=== PATIENT | female | born 1945 | race Two or more races ===

== ENCOUNTER 2018-07-05 18:15 | Inpatient (IN) | payer SELFPAY ==
[~2018-07-05] VITALS: Ht 157.5 cm; Wt 56.0 kg
[2018-07-05 18:45] LABS: BASOPHILS 0 % (0-2); EOSINOPHILS 0 % (0-7); HEMATOCRIT 32.9 % (36.0-48.0); IMMATURE GRANULOCYTES 0.1 % (0-5); LYMPHOCYTES 6.7 % (15-50); MCH 28.9 pg (26.0-34.0); MCHC 33.4 g/dL (31.0-37.0); MCV 86.4 fL (80.0-100.0); MEAN PLATELET VOLUME 11.2 fL (7.4-10.4); MONOCYTES 4.4 % (2-11); NEUTROPHILS 88.8 % (40-80); PLATELET COUNT 238 10x3/uL (130-400); RBC 3.81 10x6/uL (4.00-5.40); WBC 9.8 10x3/uL (4.8-10.8)
[2018-07-05 19:24] LABS: ALBUMIN 3.7 g/dL (3.4-5.0); ANION GAP 14.9 mmol/L (8-16); BILIRUBIN - TOTAL 0.49 mg/dL (0.2-1.3); CARBON DIOXIDE 27.8 mmol/L (21.0-32.0); CREATININE - SERUM 2.2 mg/dL (0.6-1.3); POTASSIUM - SERUM 3.7 mmol/L (3.5-5.1); PROTEIN - SERUM 8.2 g/dL (6.4-8.2)
[2018-07-05 21:30] VITALS: BP 143/78
[2018-07-05 22:01] LABS: APPEARANCE CLEAR (CLEAR); COLOR YELLOW (YELLOW); NITRITE POSITIVE (NEGATIVE); PROTEIN TRACE mg/dL (NEGATIVE)
[2018-07-05 22:02] LABS: BACTERIA MANY /hpf (NONE SEEN); BILIRUBIN NEGATIVE (NEGATIVE); EPITHELIAL CELLS 0-5 /hpf (0-5); GLUCOSE 1000 mg/dL (NEGATIVE); KETONE NEGATIVE (NEGATIVE); RED CELLS - URINE OCC /hpf (0-5); UROBILINOGEN NORMAL (NORMAL); WHITE CELLS - URINE 0-5 /hpf (0-5)
[2018-07-05 22:30] VITALS: BP 167/90
[2018-07-05 23:16] LABS: C-REACTIVE PROTEIN 4.5 mg/dL (0.0-0.9); CKMB 0.5 U/L (0.0-3.6); PRO BNP 1791 pg/mL (0-125); THYROID STIMULATING HORMONE 0.75 uIU/mL (0.36-3.74); TROPONIN-I < 0.017 ng/mL (0.000-0.060)
[2018-07-05 23:30] VITALS: BP 172/92
[2018-07-06] VITALS (14 sets, daily range): BP systolic 140–165; BP diastolic 78–106; BMI 21.0
[2018-07-06 05:08] LABS: BASOPHILS 0.1 % (0-2); EOSINOPHILS 0 % (0-7); HEMATOCRIT 31.8 % (36.0-48.0); HEMOGLOBIN 10.7 g/dL (12-16); IMMATURE GRANULOCYTES 0.2 % (0-5); LYMPHOCYTES 8.5 % (15-50); MCH 28.8 pg (26.0-34.0); MCHC 33.6 g/dL (31.0-37.0); MCV 85.5 fL (80.0-100.0); MEAN PLATELET VOLUME 11.2 fL (7.4-10.4); MONOCYTES 6.4 % (2-11); NEUTROPHILS 84.8 % (40-80); PLATELET COUNT 228 10x3/uL (130-400); RBC 3.72 10x6/uL (4.00-5.40); RDW 14.1 % (11.5-14.5); WBC 8.6 10x3/uL (4.8-10.8)
[2018-07-06 05:17] LABS: ANION GAP 11.4 mmol/L (8-16); CALCIUM 8.6 mg/dL (8.5-10.1); CARBON DIOXIDE 31.3 mmol/L (21.0-32.0); CREATININE - SERUM 2.2 mg/dL (0.6-1.3); POTASSIUM - SERUM 3.7 mmol/L (3.5-5.1)
[2018-07-07 04:00] VITALS: BP 164/85
[2018-07-07 04:15] LABS: BASOPHILS 0.2 % (0-2); EOSINOPHILS 0 % (0-7); HEMATOCRIT 29.9 % (36.0-48.0); IMMATURE GRANULOCYTES 0.5 % (0-5); LYMPHOCYTES 18.6 % (15-50); MCH 28.8 pg (26.0-34.0); MCHC 33.4 g/dL (31.0-37.0); MCV 86.2 fL (80.0-100.0); MONOCYTES 9.6 % (2-11); NEUTROPHILS 71.1 % (40-80); PLATELET COUNT 192 10x3/uL (130-400); RBC 3.47 10x6/uL (4.00-5.40); RDW 14.1 % (11.5-14.5)
[2018-07-07 04:33] LABS: WBC 6.1 10x3/uL (4.8-10.8)
[2018-07-07 04:41] LABS: ANION GAP 12.1 mmol/L (8-16); CALCIUM 8.1 mg/dL (8.5-10.1); CARBON DIOXIDE 28.1 mmol/L (21.0-32.0); CREATININE - SERUM 1.5 mg/dL (0.6-1.3); POTASSIUM - SERUM 3.2 mmol/L (3.5-5.1)
[2018-07-07 08:19] VITALS: BP 164/77
[2018-07-07 12:18] VITALS: BP 142/69
[2018-07-07 12:34] VITALS: Ht 157.5 cm; Wt 56.0 kg
[2018-07-07 15:22] VITALS: BP 136/79
[2018-07-07 20:00] VITALS: BP 165/90
[2018-07-08 04:00] VITALS: BP 127/92
[2018-07-08 05:16] LABS: HEMATOCRIT 31.8 % (36.0-48.0); HEMOGLOBIN 10.9 g/dL (12-16); LYMPHOCYTES 31.7 % (15-50); MCH 28.9 pg (26.0-34.0); MCHC 34.3 g/dL (31.0-37.0); MCV 84.4 fL (80.0-100.0); MEAN PLATELET VOLUME 10.9 fL (7.4-10.4); NEUTROPHILS 56.9 % (40-80); PLATELET COUNT 180 10x3/uL (130-400); RBC 3.77 10x6/uL (4.00-5.40); RDW 13.4 % (11.5-14.5); WBC 7.1 10x3/uL (4.8-10.8)
[2018-07-08 05:25] LABS: ANION GAP 12.3 mmol/L (8-16); BILIRUBIN - TOTAL 0.31 mg/dL (0.2-1.3); CALCIUM 8.7 mg/dL (8.5-10.1); CARBON DIOXIDE 26.7 mmol/L (21.0-32.0); CREATININE - SERUM 1.4 mg/dL (0.6-1.3); PROTEIN - SERUM 6.9 g/dL (6.4-8.2)
[2018-07-08 09:30] VITALS: BP 181/87
[2018-07-08 12:56] VITALS: BP 188/96
[2018-07-08 16:35] VITALS: BP 150/68
[2018-07-08 20:39] VITALS: BP 192/104
[2018-07-09 04:00] VITALS: BP 185/112
[2018-07-09 06:26] LABS: BASOPHILS 0.4 % (0-2); EOSINOPHILS 1.9 % (0-7); HEMATOCRIT 29.3 % (36.0-48.0); HEMOGLOBIN 9.7 g/dL (12-16); IMMATURE GRANULOCYTES 0.9 % (0-5); LYMPHOCYTES 34.7 % (15-50); MCH 28.6 pg (26.0-34.0); MCHC 33.1 g/dL (31.0-37.0); MCV 86.4 fL (80.0-100.0); MONOCYTES 11.8 % (2-11); NEUTROPHILS 50.3 % (40-80); PLATELET COUNT 190 10x3/uL (130-400); RBC 3.39 10x6/uL (4.00-5.40); RDW 13.6 % (11.5-14.5); WBC 7.4 10x3/uL (4.8-10.8)
[2018-07-09 06:49] LABS: ALBUMIN 2.5 g/dL (3.4-5.0); ANION GAP 13.2 mmol/L (8-16); BILIRUBIN - TOTAL 0.19 mg/dL (0.2-1.3); CALCIUM 8.1 mg/dL (8.5-10.1); CARBON DIOXIDE 24.3 mmol/L (21.0-32.0); POTASSIUM - SERUM 3.5 mmol/L (3.5-5.1)
[2018-07-09 07:45] VITALS: BP 133/64
[2018-07-09 10:41] VITALS: BP 177/97
[2018-07-09 15:09] VITALS: BP 173/101
[2018-07-09 16:10] VITALS: BP 137/90; BP 152/86
[2018-07-09 20:00] VITALS: BP 143/76
[2018-07-10] VITALS: BP 188/95
[2018-07-10 04:00] VITALS: BP 119/71
[2018-07-10 05:06] LABS: BASOPHILS 0.3 % (0-2); EOSINOPHILS 1.8 % (0-7); HEMATOCRIT 29.1 % (36.0-48.0); HEMOGLOBIN 9.8 g/dL (12-16); IMMATURE GRANULOCYTES 0.9 % (0-5); LYMPHOCYTES 37.7 % (15-50); MCH 28.2 pg (26.0-34.0); MCHC 33.7 g/dL (31.0-37.0); MEAN PLATELET VOLUME 11.8 fL (7.4-10.4); MONOCYTES 10.9 % (2-11); NEUTROPHILS 48.4 % (40-80); PLATELET COUNT 168 10x3/uL (130-400); RBC 3.47 10x6/uL (4.00-5.40); RDW 13.6 % (11.5-14.5)
[2018-07-10 05:11] LABS: MCV 83.9 fL (80.0-100.0)
[2018-07-10 05:30] LABS: ALBUMIN 2.7 g/dL (3.4-5.0); ANION GAP 10.6 mmol/L (8-16); BILIRUBIN - TOTAL 0.22 mg/dL (0.2-1.3); CALCIUM 8.2 mg/dL (8.5-10.1); CARBON DIOXIDE 27.1 mmol/L (21.0-32.0); CREATININE - SERUM 1.1 mg/dL (0.6-1.3); POTASSIUM - SERUM 3.7 mmol/L (3.5-5.1); PROTEIN - SERUM 6.1 g/dL (6.4-8.2)
[2018-07-10 07:00] VITALS: BP 127/71
[2018-07-10 12:00] VITALS: BP 111/62
[2018-07-10 20:00] VITALS: BP 171/85
[2018-07-11 00:07] VITALS: BP 157/72
[2018-07-11 04:00] VITALS: BP 164/86
[2018-07-11 05:23] LABS: BASOPHILS 0.2 % (0-2); HEMATOCRIT 28.3 % (36.0-48.0); HEMOGLOBIN 9.5 g/dL (12-16); IMMATURE GRANULOCYTES 1.3 % (0-5); LYMPHOCYTES 35.1 % (15-50); MCH 28.4 pg (26.0-34.0); MCHC 33.6 g/dL (31.0-37.0); MCV 84.5 fL (80.0-100.0); MEAN PLATELET VOLUME 11.1 fL (7.4-10.4); NEUTROPHILS 52.4 % (40-80); RBC 3.35 10x6/uL (4.00-5.40); RDW 13.8 % (11.5-14.5); WBC 9.1 10x3/uL (4.8-10.8)
[2018-07-11 05:24] LABS: PLATELET COUNT 215 10x3/uL (130-400)
[2018-07-11 05:32] LABS: ALBUMIN 2.8 g/dL (3.4-5.0); ANION GAP 10.4 mmol/L (8-16); BILIRUBIN - TOTAL 0.19 mg/dL (0.2-1.3); CALCIUM 8.1 mg/dL (8.5-10.1); CARBON DIOXIDE 28.1 mmol/L (21.0-32.0); CREATININE - SERUM 1.1 mg/dL (0.6-1.3); POTASSIUM - SERUM 3.5 mmol/L (3.5-5.1); PROTEIN - SERUM 6.2 g/dL (6.4-8.2)
[2018-07-11 09:21] VITALS: BP 143/68
[2018-07-11 11:51] VITALS: BP 150/75
[2018-07-11 16:35] VITALS: BP 136/69
[2018-07-11 20:00] VITALS: BP 159/78
[2018-07-12 00:04] VITALS: BP 171/89
[2018-07-12 04:00] VITALS: BP 166/74
[2018-07-12 04:50] LABS: BASOPHILS 0.2 % (0-2); EOSINOPHILS 2.2 % (0-7); HEMATOCRIT 28.8 % (36.0-48.0); HEMOGLOBIN 9.6 g/dL (12-16); LYMPHOCYTES 38.8 % (15-50); MCH 28.3 pg (26.0-34.0); MCHC 33.3 g/dL (31.0-37.0); MEAN PLATELET VOLUME 10.9 fL (7.4-10.4); MONOCYTES 8.8 % (2-11); PLATELET COUNT 231 10x3/uL (130-400); RBC 3.39 10x6/uL (4.00-5.40); RDW 14.1 % (11.5-14.5); WBC 9.8 10x3/uL (4.8-10.8)
[2018-07-12 05:09] LABS: ANION GAP 14.1 mmol/L (8-16); BILIRUBIN - TOTAL 0.22 mg/dL (0.2-1.3); CALCIUM 8.4 mg/dL (8.5-10.1); CREATININE - SERUM 1.3 mg/dL (0.6-1.3); PROTEIN - SERUM 6.4 g/dL (6.4-8.2)
[2018-07-12 05:10] LABS: POTASSIUM - SERUM 4.1 mmol/L (3.5-5.1)
[2018-07-12 07:40] VITALS: BP 148/82
[2018-07-12 11:37] VITALS: BP 153/83
[2018-07-12 15:16] VITALS: BP 166/87
[2018-07-12 21:00] VITALS: BP 144/70
[2018-07-13 05:04] LABS: BASOPHILS 0.1 % (0-2); EOSINOPHILS 2.8 % (0-7); HEMOGLOBIN 9.2 g/dL (12-16); IMMATURE GRANULOCYTES 1.5 % (0-5); LYMPHOCYTES 35.2 % (15-50); MCH 28.1 pg (26.0-34.0); MCHC 32.9 g/dL (31.0-37.0); MCV 85.6 fL (80.0-100.0); MEAN PLATELET VOLUME 10.5 fL (7.4-10.4); NEUTROPHILS 50.4 % (40-80); PLATELET COUNT 252 10x3/uL (130-400); RBC 3.27 10x6/uL (4.00-5.40); RDW 14.4 % (11.5-14.5); WBC 9.6 10x3/uL (4.8-10.8)
[2018-07-13 05:20] LABS: ANION GAP 14.6 mmol/L (8-16); CALCIUM 8.4 mg/dL (8.5-10.1); CARBON DIOXIDE 27.4 mmol/L (21.0-32.0); CREATININE - SERUM 1.3 mg/dL (0.6-1.3)
[2018-07-13 05:42] VITALS: BP 146/70
[2018-07-13 07:22] VITALS: BP 180/80
[2018-07-13] MEDS ORDERED: LEVAQUIN750 MG PO (10:35)
[2018-07-13] MEDS ORDERED: MEGACE40 MG PO (10:35)
[2018-07-13] MEDS ORDERED: PROTONIX40 MG PO (10:35)
[2018-07-13] MEDS ORDERED: LISINOPRIL10 MG PO (10:35)
[2018-07-13] MEDS ORDERED: GLUCOPHAGE500 MG PO (10:35)
== END 2018-07-13 15:26 | disposition home or self-care (01) | DRG 872 ==
LOC: D.ER 18:15 → D.EDHOLD 07-06 01:21 → OBSVTIME 07-06 01:21 → D.EDHOLD 07-06 01:21 → D.M2 07-06 14:05
PROVIDERS: Family Medicine; Internal Medicine Nephrology
DX: R78.81 Bacteremia (principal); N17.9 Acute kidney failure, unspecified; N39.0 Urinary tract infection, site not specified; E86.0 Dehydration; E11.65 Type 2 diabetes mellitus with hyperglycemia; Z79.4 Long term (current) use of insulin; R19.7 Diarrhea, unspecified; B96.20 Unspecified Escherichia coli [E. coli] as the cause of diseases classified elsewhere